=== PATIENT | male | born 1970 | race Caucasian/White ===

== ENCOUNTER → 2020-03-04 15:17 | Outpatient (CLI) | payer OTHER, SELFPAY ==
--- NOTE | ~2020-03-04 | XR_ITS ---
XR heel RT min 2V DATE: 03/04/2020 15:35 INDICATION: Right foot and heel pain TECHNIQUE: Lateral and axial views COMPARISON: None FINDINGS: There is mild plantar calcaneal enthesopathy. There is mild posterior calcaneal enthesopathy. No periostitis or erosive change is evident. No calcaneal fracture or dislocation. No bone destruction. IMPRESSION: Mild plantar and posterior calcaneal enthesopathy Reviewed, dictated and finalized at location B. MAKER
== END ==
PROVIDERS: PCP Nurse Practitioner Family; Visit Provider Nurse Practitioner Family
DX: M79.671 Pain in right foot (principal); M77.31 Calcaneal spur, right foot
CPT/HCPCS: 73650

== ENCOUNTER 2021-10-07 00:43 | Day surgery (SDC) | payer OTHER, SELFPAY ==
[2021-09-23 14:31] VITALS: BMI 33.9
--- NOTE | 2021-10-06 10:23 | WPDANESEPPF ---
Anes - Initial Pre Proc Eval Procedure: Operation Date: 10/07/21 09:00 Proposed Procedures p Screening Colonoscopy - Jace Cordoba MD Date/Time: 10/06/21 10:23 Surgeon: Jace Cordoba MD Pre Op Diagnosis: neoplasm screening Patient Data Age: 50 Gender: M Height: 1.91 m Weight: 123 kg Allergies Allergy/AdvReac Type Severity Reaction Status Date / Time Penicillins Allergy Unknown Unknown Verified 10/07/21 08:15 Home Medications Medication Instructions Recorded Confirmed Type sodium sul 1.479 gram-potas ch See Rx Instructions PO PER PKG DIR 08/25/21 Rx 0.188 gram-magnes sul 0.225 gram #24 tabs tablet (Sutab) aspirin 81 mg tablet 81 mg PO DAILY 09/23/21 10/07/21 History atorvastatin 10 mg tablet (Lipitor) 10 tablet DAILY 09/23/21 10/07/21 History metformin 500 mg tablet 500 tablet PO BID 09/23/21 10/07/21 History venlafaxine 75 mg capsule,extended 75 cap PO DAILY 09/23/21 10/07/21 History release 24 hr Patient hx anesthesia problems: none Family hx anesthesia problems: none Results Review: All pre-operative results and documents have been reviewed as part of the pre-operative evaluation. [facility] Past Medical History Medical History (Updated 10/07/21 @ 07:23 by Jace Cordoba MD) Anxiety Depression Diabetes type 2, controlled Hyperlipidemia DEVON (obstructive sleep apnea) Social History Social History Smoking status: Never smoker Alcohol intake: current Drinks per week: 3 Substance use type: does not use Spiritual care concerns: No Anes - Eval Final PreProcedure Day of Procedure 10/06/21 10:23 Patient weight: obese Heart: regular rate and rhythm Lungs: clear to auscultation Airway: Mallampati scale class II Neurological: alert and oriented Last oral intake: >/= 8 hours ASA classification: III Emergent: no Anesthetic plan: proceed Anesthesia type and monitoring: general GIVS and standard monitoring Results Review: All pre-operative results and documents have been reviewed as part of the pre-operative evaluation. Informed Consent: The patient's anesthetic plan and its attendant risks and benefits were discussed with the patient/family/POA. Questions were solicited and answers provided to the satisfaction of the patient/family/POA.
--- NOTE | 2021-10-07 07:23 | PM.HPGS ---
History of Present Illness History of Present Illness Consent: Risks, benefits, and alternatives have been discussed and questions answered. Patient agrees to proceed with procedure. Chief complaint: neoplasm screening Narrative: Filippo Santiago is a 50 year old male Referred for colon cancer screening. Review of Systems Review of Systems: All systems reviewed & are unremarkable except as noted in HPI and below PMFSH Past Medical History Medical History Anxiety Depression Diabetes type 2, controlled Hyperlipidemia DEVON (obstructive sleep apnea) Social History Social History Smoking status: Never smoker Alcohol intake: current Drinks per week: 3 Substance use type: does not use Spiritual care concerns: No Meds Home Medications and Allergies Home Medications Medication Instructions Recorded Confirmed Type sodium sul 1.479 gram-potas ch See Rx Instructions PO PER PKG DIR 08/25/21 Rx 0.188 gram-magnes sul 0.225 gram #24 tabs tablet (Sutab) aspirin 81 mg tablet mg PO 09/23/21 History atorvastatin 10 mg tablet tablet DAILY 09/23/21 History metformin 500 mg tablet tablet BID 09/23/21 History venlafaxine 75 mg capsule,extended cap PO DAILY 09/23/21 History release 24 hr Allergies Allergy/AdvReac Type Severity Reaction Status Date / Time Penicillins Allergy Unknown Unknown Verified 10/07/21 08:15 Exam Resp: Auscultation: clear to auscultation bilaterally Cardio: Rate: regular rate Rhythm: regular rhythm GI: GI Palp: Yes Soft to palpation and No Tenderness to palpation present (GI) Assessment and Plan Assessment and plan (1) Colon cancer screening: Code(s): Z12.11 - Encounter for screening for malignant neoplasm of colon Status: Acute Assessment and Plan: Colonoscopy with possible biopsy or polypectomy or cautery or injection of substances.
[2021-10-07 08:10] LABS: Glucose Point of Care 116 mg/dl (65-105)
[2021-10-07 08:16] VITALS: BP 148/90; PULSE 54; RESP 20; TEMP 36.3; O2SAT 99
[2021-10-07] MEDS: LACTATED RINGERS 1,000 ML 150 ML IV CONT (08:23)
[2021-10-07 09:16] VITALS: BP 101/62; PULSE 63; RESP 16; O2SAT 96
[2021-10-07 09:26] VITALS: BP 102/72; PULSE 56; RESP 20; O2SAT 96
--- NOTE | 2021-10-07 09:29 | ECG_ITS ---
Measurements Intervals [place] Rate: 49 P: 27 WA: 178 QRS: -13 QRSD: 125 T: 0 QT: 434 QTc: 393 Interpretive Statements SINUS BRADYCARDIA WITH MARKED SINUS ARRHYTHMIA ABNORMAL ECG NO PREVIOUS ECG AVAILABLE FOR COMPARISON Electronically Signed On 10-07-2021 16:46:19 CDT by Wale Johnson M.D.
[2021-10-07 09:36] VITALS: BP 115/70; PULSE 74; RESP 20; O2SAT 96
--- NOTE | 2021-10-07 09:44 | SUR.PHASEII ---
0916: PT RECEIVED TO POST OP AFTER PROCEDURE, VITAL SIGNS HR 64, BLOOD PRESSURE 101/62, PT AWAKE BUT DROWSY. NOTED ARRYTHMIA ON MONITOR BUT UNABLE TO READ FULLY. DR RAMIREZ NOTIFIED, SAW PT, ORDER FOR EKG OBTAINED, EKG COMPLETED, RESULTS GIVEN TO DR RAMIREZ, DR RAMIREZ SEEING PT AND DISCUSSING, ORDER RECEIVED TO DISCHARGE PT. PT AND SPOUSE GIVEN EKG RESULTS TO FOLLOW UP WITH PCP, NOTIFIED IF ANY SYMPTOMS TO GO TO ER, PT STATES UNDERSTANDING AND NO CONCERNS.
== END 2021-10-07 10:01 | disposition home or self-care (01) ==
PROVIDERS: PCP Nurse Practitioner Family; Visit Provider Internal Medicine Gastroenterology
PROC: 0DJD8ZZ Inspection of Lower Intestinal Tract, Via Natural or Artificial Opening Endoscopic (ICD-10-PCS; CPT 45378; principal; 2021-10-07 09:00)
DX: Z12.11 Encounter for screening for malignant neoplasm of colon (principal); E11.9 Type 2 diabetes mellitus without complications; E78.5 Hyperlipidemia, unspecified; G47.33 Obstructive sleep apnea (adult) (pediatric); F41.9 Anxiety disorder, unspecified; F32.A Depression, unspecified; Z79.82 Long term (current) use of aspirin; Z79.84 Long term (current) use of oral hypoglycemic drugs; E66.9 Obesity, unspecified; Z68.32 Body mass index [BMI] 32.0-32.9, adult
CPT/HCPCS: 45378; 82948; 93005; J2704; J7120

== ENCOUNTER → 2022-08-25 09:03 | Outpatient (CLI) | payer OTHER, SELFPAY ==
--- NOTE | ~2022-08-25 | CT_ITS ---
CT of the Abdomen and Pelvis: Indication: Hematuria Technique: 2.5 mm axial scans were obtained through the abdomen and pelvis prior to and following in travenous administration of 130 cc of Omnipaque 350. Dose reduction technique was used on this scan b y utilizing automated exposure control and iterative reconstruction technique. The dose-length produc t (DLP) was 2477.12 mGy-cm. Findings: Scans through the lung bases are unremarkable. The liver, spleen, pancreas, gallbladder, adrenals and right kidney are within normal limits. 6 mm no nobstructing left renal stone noted. No evidence of aortic aneurysm. No lymphadenopathy. No bowel obstruction or bowel wall thickening. There is no evidence to suggest acute appendicitis. Images through the pelvis were performed. Urinary bladder unremarkable. Prostate gland and seminal ve sicles are unremarkable. Small fat-containing left inguinal hernia present. Impression: 6 mm nonobstructing left renal stone. Small fat-containing left inguinal hernia. Reviewed, dictated and finalized at [facility]. Impression: 6 mm nonobstructing left renal stone. Small fat-containing left inguinal hernia.
[2022-08-25 09:27] LABS: Estimated Glomerular Filt Rate > 60
== END ==
DX: R31.9 Hematuria, unspecified (principal); N20.0 Calculus of kidney; K40.90 Unilateral inguinal hernia, without obstruction or gangrene, not specified as recurrent
CPT/HCPCS: 74178; Q9967

== ENCOUNTER 2023-02-03 09:15 | Emergency (ER) | payer OTHER, SELFPAY ==
[2023-02-03 09:30] VITALS: BP 176/92; PULSE 66; RESP 14; TEMP 36.6; O2SAT 97
--- NOTE | 2023-02-03 09:52 | ED.URI ---
HPI - URI/Sore Throat General Chief Complaint: Upper Respiratory Infection Stated Complaint: Cough,Congestion Source: patient Mode of arrival: ambulatory Limitations: no limitations History of Present Illness HPI Narrative: 52-year-old male presented for complaint of cough for 2 weeks. He states the cough is nonproductive, worse at night. He denies significant sinus congestion drainage, denies shortness of breath, wheezing, nausea vomiting, fevers or chills. Denies known sick contacts. He states he gets similar symptoms yearly. Taking Delsym for symptoms. Related Data Home Medications Medication Instructions Recorded Confirmed aspirin 81 mg tablet 81 mg PO DAILY 09/23/21 02/03/23 atorvastatin 10 mg tablet (Lipitor) 10 tablet DAILY 09/23/21 02/03/23 metformin 500 mg tablet 500 tablet PO BID 09/23/21 02/03/23 venlafaxine 75 mg capsule,extended 75 cap PO DAILY 09/23/21 02/03/23 release 24 hr blood sugar diagnostic (OneTouch 02/03/23 02/03/23 Verio test strips) lancets 33 gauge (OneTouch Delica 02/03/23 02/03/23 Plus Lancet) lisinopril 10 mg tablet 10 mg PO DAILY 02/03/23 02/03/23 Allergies Allergy/AdvReac Type Severity Reaction Status Date / Time Penicillins AdvReac Mild Hives Verified 02/03/23 09:27 Review of Systems Review of Systems: CONSTITUTIONAL: Denies body aches, fever, chills, or sweats. EYES: Denies visual changes, redness, or discharge. ENT: Denies rhinorrhea, congestion, sore throat, or otalgia. CARDIOVASCULAR: Denies chest pain, palpitations, or edema. RESPIRATORY: Reports cough, denies sob, wheezing. GASTROINTESTINAL: Denies abdominal pain, nausea, vomiting, or diarrhea. GENITOURINARY: Denies dysuria or hematuria. SKIN: Denies rash, itching, or wounds. MUSCULOSKELETAL: Denies back pain, joint pain, or myalgia. NEUROLOGIC: Denies headache, numbness, tingling, or weakness. All systems reviewed & are unremarkable except as noted in HPI and below PMFSH Past Medical History Medical History (Updated 02/03/23 @ 09:57 by Morena Bustos, ASSEMBLER BICYCLE) Anxiety Depression Diabetes type 2, controlled Hyperlipidemia Hypertension DEVON (obstructive sleep apnea) Social History Social History Smoking status: Never smoker Alcohol intake: current Drinks per week: 3 Substance use type: does not use Spiritual care concerns: No Comments At time of signature, I have reviewed and agree with nursing past medical, surgical, social and family history unless otherwise noted. Please see nursing chart for further information. There is no relevant family history pertinent to the presenting complaint Exam Narrative: GENERAL: Well-appearing, in no acute distress. EYES: EOMI. No redness or drainage. Conjunctivae normal. ENT: Mucous membranes pink and moist. No rhinorrhea. TMs normal bilaterally. Throat normal. Uvula midline. NECK: Normal AROM. Supple. CHEST: No respiratory distress. lungs clear to all fernandez. HEART: Regular rate and rhythm. No murmur appreciated. ABDOMEN: Soft, nontender, nondistended, normal active bowel sounds. EXTREMITIES: Normal range of motion. No edema. SKIN: Warm, dry, no rash. Capillary refill normal. Normal skin turgor. NEURO: Alert and oriented x3. Gait steady. PSYCH: Normal affect. Course Course Emergency Course: Patient is aware of diagnosis, understands and agrees to treatment plan. Anticipatory guidance given. Patient agrees to follow-up as directed and is aware of reasons to seek care at the emergency department. Portions of this record may have been created with voice recognition software Level of Care: Express Care Visit Vital Signs Vital signs: Vital Signs Temperature 97.9 F 02/03/23 09:30 Pulse Rate 66 02/03/23 09:30 Respiratory Rate 14 02/03/23 09:30 Blood Pressure 176/92 H 02/03/23 09:30 Pulse Oximetry 97 02/03/23 09:30 Oxygen Delivery Room Air 02/03/23 09
== END 2023-02-03 09:56 | disposition home or self-care (01) ==
PROVIDERS: Emergency Provider Nurse Practitioner Family
DX: R05.9 Cough, unspecified (principal); E11.9 Type 2 diabetes mellitus without complications; Z79.84 Long term (current) use of oral hypoglycemic drugs; E78.5 Hyperlipidemia, unspecified; I10 Essential (primary) hypertension; F41.9 Anxiety disorder, unspecified; F32.A Depression, unspecified; Z79.82 Long term (current) use of aspirin
CPT/HCPCS: 99213; G0463

== ENCOUNTER 2023-04-14 10:29 | Emergency (ER) | payer OTHER, SELFPAY ==
--- NOTE | ~2023-04-14 | XR_ITS ---
EXAMINATION: XR hand LT min 3V DATE: 04/14/2023 10:59 INDICATION: Left hand injury. TECHNIQUE: 3 views of left hand were obtained. COMPARISON: None. FINDINGS: There is a comminuted extra-articular fracture of first distal phalanx. There is a transmet acarpal amputation of second digit. 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 IMPRESSION: 1. Comminuted extra-articular fracture of first distal phalanx. 2. Transmetacarpal amputation of second digit. Reviewed, dictated and finalized at location A. INIST/MACHINE BUILDER
[2023-04-14 10:33] VITALS: BP 113/67; PULSE 49; RESP 16; TEMP 36.6; O2SAT 95
--- NOTE | 2023-04-14 10:37 | ED.HEATRA ---
HPI - Head Injury General Chief complaint: Trauma <FLACO Crespo Last Filed: 04/14/23 16:26> Stated complaint: finger amputation <FLACO Crespo Last Filed: 04/14/23 16:26> Time Seen by Provider: 04/14/23 10:31 <FLACO Crespo Last Filed: 04/14/23 16:26> History of Present Illness HPI Narrative: 52-year-old male presents for evaluation for trauma to his left hand. Patient states he was reaching under a table and cut his 2nd left digit completely off on a table saw. This occurred 15 minutes prior to arrival. Patient arrives with his left 2nd digit in a plastic bag on ice. He is also reporting with a laceration to the distal phalanx of his left 1st finger and a laceration to the 2nd and 3rd MCPs. He is not anticoagulated. Tetanus is up-to-date. denies paresthesias. <FLACO Crespo Last Filed: 04/14/23 16:26> Related Data Home medications: Home Medications Medication Instructions Recorded Confirmed aspirin 81 mg tablet 81 mg PO DAILY 09/23/21 02/03/23 atorvastatin 10 mg tablet (Lipitor) 10 tablet DAILY 09/23/21 02/03/23 metformin 500 mg tablet 500 tablet PO BID 09/23/21 02/03/23 venlafaxine 75 mg capsule,extended 75 cap PO DAILY 09/23/21 02/03/23 release 24 hr blood sugar diagnostic (OneTouch 02/03/23 02/03/23 Verio test strips) lancets 33 gauge (OneTouch Delica 02/03/23 02/03/23 Plus Lancet) lisinopril 10 mg tablet 10 mg PO DAILY 02/03/23 02/03/23 <FLACO Crespo Last Filed: 04/14/23 16:26> Allergies/Adverse reactions: Allergies Allergy/AdvReac Type Severity Reaction Status Date / Time Penicillins Allergy Mild Hives Verified 04/14/23 10:33 <FLACO Crespo Last Filed: 04/14/23 16:26> Review of Systems Review of Systems: CONSTITUTIONAL: Denies fever, chills, or sweats. EYES: Denies visual changes, redness, or discharge. ENT: Denies rhinorrhea, congestion, sore throat, or otalgia. CARDIOVASCULAR: Denies chest pain, palpitations, or edema. RESPIRATORY: Denies cough or dyspnea. GASTROINTESTINAL: Denies abdominal pain, nausea, vomiting, or diarrhea. GENITOURINARY: Denies dysuria or hematuria. SKIN: See HPI MUSCULOSKELETAL: Denies back pain, joint pain, or myalgia. NEUROLOGIC: Denies headache, numbness, or weakness. PSYCHIATRIC: Denies anxiety or depression. <Mary Esparza PA-C - Last Filed: 04/14/23 16:26> [facility] Past Medical History Medical History: Medical History Anxiety Depression Diabetes type 2, controlled Hyperlipidemia Hypertension DEVON (obstructive sleep apnea) <Mary Esparza PA-C - Last Filed: 04/14/23 16:26> Social History Social History: Social History Smoking status: Never smoker Alcohol intake: current Drinks per week: 3 Substance use type: does not use Spiritual care concerns: No <FLACO Crespo Last Filed: 04/14/23 16:26> Exam Narrative: GENERAL: Well-appearing, well-nourished, and in no acute distress. HEAD: Normocephalic, atraumatic. NECK: Supple. CHEST: Clear to auscultation. No respiratory distress. HEART: Regular rate and rhythm. No murmur heard. Normal peripheral pulses. EXTREMITIES: LUE: Complete amputation to the 2nd digit in the mid proximal phalanx, mild bleeding. No arterial bleed. Deep laceration exposing subcutaneous tissue and tendons between the 2nd and 3rd MCP. Laceration to the dorsum of the proximal 1st digit extending over the nail. Mild wheezing throughout. cap refill less than 2 throughout. Radial pulse 2 +. Sensation intact in all digits. Full active range of motion of all fingers. SKIN: Warm, dry, no rash. NEURO: No focal deficits. Alert and oriented x3 <Mary Esparza PA-C - Last Filed: 04/14/23 16:26> Course DOCUMENT PROCESSING SPECIALIST/PA Physician Supervision For this patient encoun
[2023-04-14] MEDS: SODIUM CHLORIDE 0.9% IV 1,000 ML 999 ML IV CONT ×2 (10:44→10:46)
[2023-04-14] MEDS: ONDANSETRON INJ 4 MG/2 ML VIAL IV PUSH (10:44)
[2023-04-14 10:45] VITALS: PULSE 48
[2023-04-14] MEDS: HYDROmorphone HCL INJ (*CRX) 1 MG/ML SYR 0.5 MG IV PUSH (10:45)
[2023-04-14] MEDS: ceFAZolin 2 GM/D5W 50 ML 2 GM/50 ML BAG IVPB (10:52)
[2023-04-14 10:54] LABS: Basophils Percent Auto 0.3 % (0.2-1.2); Eosinophils Absolute Auto 0.2 K/mm3 (0-0.3); Eosinophils Percent Auto 2.6 % (0-4.4); Hematocrit 43.5 % (42.0-52.0); Hemoglobin 14.2 g/dL (14.0-18.0); Immature Granulocyte Absolute 0.01 K/mm3 (0.00-0.031); Immature Granulocyte Percent A 0.2 % (0-0.5); Lymphocytes Absolute Auto 1.65 K/mm3 (0.9-3.2); Mean Corpuscular HGB Conc 32.6 g/dl (32-36); Mean Corpuscular Hemoglobin 28.3 pg (26-34); Mean Corpuscular Volume 86.8 fl (80-100); Mean Platelet Volume 11.2 fl (7.4-10.4); Monocytes Absolute Auto 0.6 K/mm3 (0.1-0.6); Monocytes Percent Auto 9.8 % (2.6-8.5); Neutrophils Absolute Auto 3.7 K/mm3 (1.3-6.7); Neutrophils Percent Auto 60.1 % (45.5-73.1); Platelet Count Result 210 k/mm3 (150-375); Red Blood Count 5.01 M/mm3 (4.6-6.20); Red Cell Distribution Width 13.2 % (11.5-14.5); White Blood Count 6.1 K/mm3 (4.5-10.0)
[2023-04-14 10:56] VITALS: BP 117/64; PULSE 48; RESP 24; O2SAT 91
[2023-04-14 11:04] LABS: Alanine Aminotransferase 35 U/L (6-50); Albumin Level 4.7 g/dL (3.5-5.1); Alkaline Phosphatase 70 U/L (38-126); Anion Gap 14 mmol/L (8-16); Aspartate Amino Transferase 28 U/L (17-59); Bilirubin,Total 0.8 mg/dL (0.2-1.3); Blood Urea Nitrogen 17 mg/dL (9-20); Calcium 9.6 mg/dL (8.4-10.2); Carbon Dioxide 19 mmol/L (22-30); Chloride 105 mmol/L (98-107); Estimated CRCL calculation 100 ml/min; Estimated Glomerular Filt Rate > 60; Glucose 132 mg/dL (65-110); Sodium 138 mmol/L (137-145)
--- NOTE | 2023-04-14 11:12 | PC.NURSE ---
RN spoke with charge nurse at [facility] Mauricio NUÑEZ. Mauricio relates [facility] does not offer micro surgery services, pt would have to be transferred to [place]. Marisa [facility]ED[facility] informed spoke with pt & . Decision made to contact [place] [facility].
[2023-04-14] MEDS: HYDROmorphone HCL INJ (*CRX) 1 MG/ML SYR IV PUSH (11:27)
--- NOTE | 2023-04-14 11:29 | PC.NURSE ---
Acceptance to [facility] discussed POC with pt & , Amputated digit wrapped in saline gauze placed in a bag, then placed in ice. Assessment unchanged
--- NOTE | 2023-04-14 11:49 | PC.NURSE ---
RN called [facility] spoke with charge master coordinator Mauricio informed pt transfered to [facility].
== END 2023-04-14 11:47 | disposition short-term general hospital (02) ==
PROVIDERS: Emergency Provider Physician Assistant
DX: S68.111A Complete traumatic metacarpophalangeal amputation of left index finger, initial encounter (principal); W31.2XXA Contact with powered woodworking and forming machines, initial encounter; I10 Essential (primary) hypertension; E78.5 Hyperlipidemia, unspecified; E11.9 Type 2 diabetes mellitus without complications; G47.33 Obstructive sleep apnea (adult) (pediatric); F41.9 Anxiety disorder, unspecified; F32.A Depression, unspecified; Z79.82 Long term (current) use of aspirin
CPT/HCPCS: 36415; 73130; 80053; 85025; 96361; 96365; 96375; 96376; 99285; J0690; J1170; J2405; J7030

== ENCOUNTER 2023-10-25 15:35 | Emergency (ER) | payer OTHER, SELFPAY ==
[2023-10-25 15:46] VITALS: BP 146/78; PULSE 65; RESP 18; TEMP 36.6; O2SAT 98
--- NOTE | 2023-10-25 16:00 | ED.SKABFB ---
HPI - Skin/Abscess/Foreign Bdy General Chief complaint: Skin/Abscess/Foreign Body Stated complaint: rash Time Seen by Provider: 10/25/23 16:00 Source: patient, RN notes reviewed and old records reviewed Mode of arrival: ambulatory Limitations: no limitations History of Present Illness HPI narrative: 52 year old male who [facility] with complaints of breaking out with a red raised scattered rash on Sunday on arms legs left neck and sides at axilla regions right worse than left after doing yard work on Sunday. Patient denies any difficulty with his breathing or swallowing. He reports that he has applied triamcinolone ointment to his rash has taken Benadryl and use tecnu soap on skin. Patient has large area of excoriation with some scabbing on his posterior forearms. MD complaint: rash Onset (ago): day(s) (4-5 days) Location: generalized Severity scale (1-10): 4 Quality: burning, aching and pruritic Treatments prior to arrival: other (triamcinolone ointment, Benadryl Tech) Related Data Home Medications Medication Instructions Recorded Confirmed atorvastatin 10 mg tablet (Lipitor) 10 tablet DAILY 09/23/21 10/25/23 venlafaxine 75 mg capsule,extended 75 cap PO DAILY 09/23/21 10/25/23 release 24 hr blood sugar diagnostic (OneTouch 02/03/23 02/03/23 Verio test strips) lancets 33 gauge (OneTouch Delica 02/03/23 02/03/23 Plus Lancet) lisinopril 10 mg tablet 10 mg PO DAILY 02/03/23 10/25/23 multivit with minerals-iron 18 tablet PO 10/25/23 mg-folic ac 400 mcg-vit K 25 mcg tablet (Adults Multivitamin) Allergies Allergy/AdvReac Type Severity Reaction Status Date / Time Penicillins Allergy Mild Hives Verified 10/25/23 15:45 Review of Systems Review of Systems: CONSTITUTIONAL: Denies fever, chills, or sweats. CARDIOVASCULAR: Denies chest pain, palpitations, or edema. RESPIRATORY: Denies cough or dyspnea. SKIN: Reports red rash with some vesicles noted to bilateral arms legs, axillas R>L and left neck which is red and irritated itchy MUSCULOSKELETAL: Denies joint pain or myalgia. NEUROLOGIC: Denies headache, numbness, or weakness. All systems reviewed & are unremarkable except as noted in HPI and below PMFSH Past Medical History Medical History (Updated 10/27/23 @ 09:21 by Camille Sanders NP) Anxiety Depression Diabetes type 2, controlled Hyperlipidemia Hypertension DEVON (obstructive sleep apnea) Traumatic amputation of left index finger Surgical History Surgical History (Updated 10/25/23 @ 16:18 by Camille Sanders NP) History of foot surgery ight for fracture with pins History of tonsillectomy Social History Social History Smoking status: Never smoker Alcohol intake: current Drinks per week: 3 Substance use type: does not use Spiritual care concerns: No Comments At time of signature, agree with nursing past medical, surgical, social and family history. There is no relevant family history pertinent to the presenting complaint Exam Narrative: GENERAL: Well-appearing, well-nourished, and in no acute distress. HEAD: Normocephalic, atraumatic. EYES: PERRLA, conjunctivae clear, and EOMI. ENT: Mucous membranes moist. Oropharynx without edema, erythema or lesions. NECK: Supple. No lymphadenopathy CHEST: Clear to auscultation. No respiratory distress.SAO2 98% on room air HEART: Regular rate and rhythm. SKIN: Warm, dry.? Patches of erythema and edema with vesicle lesion to bilateral arms axilla areas R>L, legs and left side of neck, excoriated area on bilateral arms with scabbing NEURO:? Alert and oriented x3. PSYCH: Normal mood and affect Course Course Emergency Course: Patient is aware of diagnosis, understands and agrees to treatment plan.? Anticipatory guidance given.? Patient agrees to follow-up as directed and is aware of reasons to seek care at the emergency department. [facility]
[2023-10-25] MEDS: methylPREDNISolone SOD SUCC 125 MG VIAL IM (16:16)
== END 2023-10-25 16:33 | disposition home or self-care (01) ==
PROVIDERS: Emergency Provider Registered Nurse; PCP Family Medicine
DX: L25.9 Unspecified contact dermatitis, unspecified cause (principal); L03.112 Cellulitis of left axilla; L03.111 Cellulitis of right axilla; E11.9 Type 2 diabetes mellitus without complications; E78.5 Hyperlipidemia, unspecified; I10 Essential (primary) hypertension; F41.9 Anxiety disorder, unspecified; F32.A Depression, unspecified
CPT/HCPCS: 96372; 99213; G0463; J2919